=== PATIENT | female | born 1975 | race Two or more races ===

== ENCOUNTER 2016-10-05 10:09 | Outpatient (CLI) | payer MEDICARE, OTHER | END 2016-10-05 23:59 | disposition home or self-care (01) | LOC: WOU 10:09 | PROVIDERS: ATTEND Specialist | DX: T81.31XD Disruption of external operation (surgical) wound, not elsewhere classified, subsequent encounter (principal); M32.10 Systemic lupus erythematosus, organ or system involvement unspecified; G40.89 Other seizures; Z79.899 Other long term (current) drug therapy | CPT/HCPCS: G0463 ==

== ENCOUNTER 2018-03-15 13:13 | Outpatient (CLI) | payer MEDICARE, BC, OTHER | END 2018-03-15 23:59 | disposition home or self-care (01) | LOC: WOU 13:13 | PROVIDERS: ATTEND Surgery | DX: L90.5 Scar conditions and fibrosis of skin (principal); E88.1 Lipodystrophy, not elsewhere classified; E66.9 Obesity, unspecified; Z68.26 Body mass index [BMI] 26.0-26.9, adult; G40.909 Epilepsy, unspecified, not intractable, without status epilepticus; M32.9 Systemic lupus erythematosus, unspecified; Z79.899 Other long term (current) drug therapy | CPT/HCPCS: G0463; Z7610 ==